=== PATIENT | male | born 1975 | race Caucasian/White ===

== ENCOUNTER 2016-08-03 13:43 | Emergency (ER) | payer MEDICAID ==
[2016-08-03 13:59] VITALS: RESP 18; O2SAT 94
--- NOTE | 2016-08-03 14:51 | EDPHY ---
H & P Time Seen by Provider: 08/03/16 14:40 HPI/ROS: CHIEF COMPLAINT: Right elbow pain HISTORY OF PRESENT ILLNESS: The patient is a 40-year-old male who presents to the emergency department with right elbow pain. Patient states he fell while riding his skateboard earlier this morning. He landed on his right elbow. He thinks he dislocated his right elbow. His pain is moderate. He feels as though there is something moving around in his elbow. Patient abraded his right knee but is able to ambulate. The patient also complains of left wrist pain but is able to move it without difficulty. REVIEW OF SYSTEMS: My complete review of systems is negative except as mentioned in the HPI. Past Medical/Surgical History: Previous knee injury Smoking Status: Current every day smoker Physical Exam: Vitals noted GENERAL: Well-appearing, in no acute distress, alert. HEAD: No evidence of trauma. EYES: PERRLA, EOMI, normal to inspection. ENT: Airway intact, no dental or oral injury, no malocclusion, no hemotympanum , normal external examination. NECK: The trachea is midline. There is no crepitus. The C-spine is nontender. NEXUS criteria is negative (no midline tenderness, no distracting injury, no altered mental status, no recent alcohol use, no focal neurologic deficit). RESPIRATORY: Clear to auscultation bilaterally, no rales, rhonchi or wheezing. There is no crepitus or palpable rib fractures. CVS: Regular rate and rhythm, no rubs, murmurs, or gallops. ABDOMEN: Soft, nontender, nondistended, normal bowel sounds, no bruising or abrasions. Pelvis: Stable. No tenderness palpation. Hips full range of motion. BACK: Normal to inspection, no spinal tenderness, no spinal step off, no notable bruising or abrasions. SKIN: Normal color, warm, dry. No pallor or diaphoresis. EXTREMITIES: Right upper extremity: Patient has mild swelling over his right elbow. There is no olecranon tenderness palpation. He has radial head tenderness to palpation. His distal forearm, wrist and hand were nontender and atraumatic. He has no proximal humeral tenderness palpation. No shoulder tenderness to palpation. No tenderness palpation. Neurovascular intact distally. Left upper extremity: Atraumatic. No visible signs of trauma. No tenderness palpation. Neurovascular intact distally. Right lower extremity: Patient has an abrasion on his right knee. No patellar tenderness palpation. Full range of motion of the right knee. He is able to ambulate in the emergency department.Neurovascular intact distally. Left lower extremity: Atraumatic. No visible signs of trauma. No tenderness palpation. Neurovascular intact distally. Atraumatic, neurovascularly intact distally in all extremities, pelvis is stable , hips with full range of motion, moves all extremities freely. NEURO/PSYCH: Alert and oriented x 3, GCS 15, normal mood and affect, normal motor sensory exam. Constitutional: Initial Vital Signs Temperature (C) 36.9 C 08/03/16 13:56 Heart Rate 87 08/03/16 13:56 Respiratory Rate 18 08/03/16 13:56 Blood Pressure 132/95 H 08/03/16 13:56 O2 Sat (%) 94 08/03/16 13:56 O2 Delivery Mode Room Air Allergies/Adverse Reactions: Penicillins Allergy (Verified 08/03/16 13:56) Home Medications: Medication Instructions Recorded oxyCODONE/APAP 5/325 [Percocet 1 - 2 tab PO Q4PRN PRN #7 tab 08/03/16 5/325 (*)] Medical Decision Making - Diagnostics Imaging Results: Imaging Impressions Elbow X-Ray 08/03/16 13:59 Impression: Impacted comminuted right radial head fracture. ED Course/Re-evaluation: In the emergency department I discussed possible etiologies with the patient. I answered all his questions. X-ray of the right elbow: Please refer the dictated report. Patient has a radial head fracture. No dislocation. Shoulder sling was placed. Patient was neurovascular intact distally. Differential Diagnosis: My differential includes but not limited to dislocation, contusion, fracture, sprain, closed-head injury, spinal injury Departure - Departure Disposition: Home, Routine, Self-Care Clinical Impression: Closed comminuted fracture of proximal end of right radius with routine healing Condition: Good Instructions: Elbow Fracture (ED) Additional Instructions: Wear your sling for comfort. You need to be followed up by Orthopedics. You have a radial head fracture on x-ray. Referrals: GEORGI PALOMO MD [Other] - As per Instructions Milton Edmonds MD [Medical Doctor] - 5-7 days, call for appt. Prescriptions: oxyCODONE/APAP 5/325 [Percocet (*)] 1 - 2 tab PO Q4PRN PRN #7 tab PRN Reason: For Moderate To Severe Pain
[2016-08-03 15:25] VITALS: BP 127/89; PULSE 94; TEMP 98.2
== END 2016-08-03 15:26 | disposition home or self-care (01) ==
DX: S52.121A Displaced fracture of head of right radius, initial encounter for closed fracture (principal); F17.200 Nicotine dependence, unspecified, uncomplicated; V00.131A Fall from skateboard, initial encounter; Y99.8 Other external cause status; Y93.51 Activity, roller skating (inline) and skateboarding
CPT/HCPCS: A4565